=== PATIENT | female | born 1930 | race Caucasian/White ===

== ENCOUNTER 2017-03-09 08:00 | Outpatient (CLI) | payer MEDICARE, OTHER | END 2017-03-09 08:01 | disposition home or self-care (01) | DX: I10 Essential (primary) hypertension (principal); E11.9 Type 2 diabetes mellitus without complications; E78.5 Hyperlipidemia, unspecified; E03.9 Hypothyroidism, unspecified ==

== ENCOUNTER 2017-06-09 08:00 | Outpatient (CLI) | payer MEDICARE, OTHER ==
[2017-06-09 13:46] LABS: BASOPHILS # (AUTO) 0.1 10^3/uL (0.0-0.1); EOSINOPHILS # (AUTO) 0.5 10^3/uL (0.0-0.7); HCT - HEMATOCRIT 34.3 % (37.0-47.0); HGB - HEMOGLOBIN 11.3 g/dL (12.0-16.0); LYMPHOCYTES % (AUTO) 14.3 %; MEAN CORPUSCULAR HEMOGLOBIN 30.3 pg (27.0-31.0); MEAN CORPUSCULAR HGB CONC 32.8 g/dL (32.0-36.0); MEAN CORPUSCULAR VOLUME 92.6 fL (81.0-99.0); MEAN PLATELET VOLUME 8.3 fL (7.9-10.8); MONOCYTES # (AUTO) 0.6 10^3/uL (0.0-1.0); NEUTROPHILS % (AUTO) 69.7 %; NUCLEATED RED BLOOD CELLS AUTO 0.1 /100WBC; RED BLOOD COUNT 3.71 10^6/uL (4.20-5.40); RED CELL DISTRIBUTION WIDTH 13.5 % (12.0-15.0); UNCORRECTED WHITE BLOOD COUNT 7.2 x10^3/uL; WHITE BLOOD COUNT 7.2 x10^3/uL (4.8-10.8)
[2017-06-09 13:50] LABS: CREATININE 1.2 mg/dL (0.4-1.0); POTASSIUM 4.2 mmol/L (3.5-5.0)
== END 2017-06-09 08:01 | disposition home or self-care (01) ==
LOC: LAB.WCP 08:00
PROVIDERS: ATTEND Family Medicine
DX: N18.3 Chronic kidney disease, stage 3 (moderate) (principal)
CPT/HCPCS: 36415; 80048; 85025

== ENCOUNTER 2017-07-12 11:03 | Outpatient (CLI) | payer MEDICARE, OTHER | END 2017-07-12 11:04 | disposition critical access hospital (66) | LOC: EMS 11:03 | PROVIDERS: ATTEND Surgery | DX: R55 Syncope and collapse (principal) | CPT/HCPCS: A0425; A0427 ==

== ENCOUNTER 2017-07-12 11:33 | Emergency (ER) | payer MEDICARE, OTHER ==
--- NOTE | 2017-07-12 12:43 | ED Physician Documentation ---
PD HPI SYNCOPE - Stated complaint Stated Complaint: SYNCOPY - Chief complaint Chief Complaint: Neuro - History obtained from History obtained from: Patient, Family - History of Present Illness Witnessed: Witnessed Timing - onset: Today Duration: Seconds Preceding symptoms: Light headed, Other (headache) Associated symptoms: Headache. No: Seizure, Incontinant of urine, Chest pain, Palpitations, Diaphoresis, Dyspnea Contributing factors: Decreased PO intake, Other (took lasix yesterday) Injury occurred: None Similar symptoms before: Diagnosis (CVA) Recently seen: Not recently seen - Additional information Additional information: 87-year-old female with a history of CVA and congestive heart failure as well as renal insufficiency has had a syncopal episode today while playing cards. She was seated at the time of the event she notes that a friend told her she had a big yawn and following that was syncopal for a brief. She did not injure herself. She does note that yesterday she took some Lasix and that she diuresed " a lot". She has a history of aortic stenosis. Review of Systems Constitutional: denies: Fever Eyes: denies: Decreased vision Ears: denies: Ear pain Nose: denies: Rhinorrhea / runny nose, Congestion Throat: denies: Sore throat Cardiac: denies: Chest pain / pressure, Palpitations Respiratory: reports: Cough. denies: Dyspnea GI: denies: Abdominal Pain, Nausea, Vomiting : denies: Dysuria, Frequency Skin: denies: Rash Musculoskeletal: denies: Neck pain, Back pain Neurologic: reports: Syncope, Headache. 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 : None HEENT: Macular degeneration Psych: Depression, Anxiety Musculoskeletal: None Derm: None - Past Surgical History Past Surgical History: Yes General: Colonoscopy Ortho: Arthroscopic surgery Cardiovascular: CABG HEENT: Cataracts, Tonsil/Adenoidectomy - Present Medications Home Medications: Ambulatory Orders Medication Instructions Recorded Confirmed Alprazolam 0.5 - 1 mg PO DAILY PRN 12/18/14 07/12/17 Atorvastatin Calcium [Lipitor] 40 mg PO DAILY 12/18/14 07/12/17 Sertraline [Zoloft] 50 mg PO DAILY 12/18/14 07/12/17 Furosemide [Lasix] 20 mg PO DAILY 04/30/15 07/12/17 Isosorbide Mononitrate [Isosorbide 30 mg PO DAILY 04/30/15 07/12/17 Mononitrate ER] traMADol [Ultram] 50 mg PO ONCE 04/30/15 07/12/17 Azelastine HCl 137 mcg NS BID 10/07/16 07/12/17 Carvedilol 12.5 mg PO BID 10/07/16 07/12/17 Cetirizine HCl 10 mg PO DAILY 10/07/16 07/12/17 Fluticasone [Flonase] 1 sprays CHNADRA BID 10/07/16 07/12/17 Clopidogrel [Plavix] 75 mg PO DAILY 07/12/17 07/12/17 - Allergies Allergies/Adverse Reactions: Allergies Allergy/AdvReac Type Severity Reaction Status Date / Time hydrocodone Allergy Unknown Verified 10/07/16 02:24 lisinopril Allergy Unknown Verified 10/07/16 02:24 metformin Allergy Unknown Verified 10/07/16 02:24 Penicillins Allergy Itching Verified 10/07/16 02:24 quinidine Allergy Unknown Verified 10/07/16 02:24 codeine AdvReac Itching Verified 10/07/16 02:24 pneumoccal vaccine Allergy Unknown Uncoded 10/07/16 02:24 - Social History Does the pt smoke?: No Smoking Status: Never smoker Does the pt drink ETOH?: No Does the pt have substance abuse?: No - Immunizations Immunizations are current?: Yes - POLST Patient has POLST: No PD ED PE NORMAL - Vitals Vital signs reviewed: Yes (normal ) - General General: No acute distress, Well developed/nourished - HEENT HEENT: Atraumatic, PERRL, Ears normal - Neck Neck: Supple, no meningeal sign, No bony TTP - Cardiac Cardiac: RRR, Other (2 out of 6 holosystolic murmur at the left sternal border radiating into the axilla and up along the sternum.) - Respiratory Respiratory: No respiratory distress, Clear bilaterally - Abdomen Abdomen: Soft, Non tender - Back Back: No CVA TTP, No spinal TTP - Derm Derm: Normal color, No rash - Extremities Extremities: No deformity, No edema - Neuro Neuro: Alert and oriented X 3, No motor deficit, No sensory deficit, Normal speech - Psych Psych: Normal mood, Normal affect Results - Vitals Vitals: Vital Signs - 24 hr 07/12/17 07/12/17 07/12/17 11:39 11:52 13:43 Temperature 36.4 C L Heart Rate 67 72 67 Respiratory 16 18 14 Rate Blood Pressure 127/76 114/76 134/68 H O2 Saturation 96 94 94 07/12/17 07/12/17 15:06 17:03 Temperature Heart Rate 74 83 Respiratory 18 17 Rate Blood Pressure 174/84 H 157/89 H O2 Saturation 96 95 Oxygen O2 Source [] Nasal cannula O2 Source [] Nasal cannula O2 Source Room air - EKG (time done) 1247 Rate: Rate (enter#) (71) Ischemia: Q waves Compare to prior EKG: Changed from prior EKG (SPT 10-07-16 T-wave onversions have developed. ) Computer interpretation: Agree with computer - Labs Labs: Laboratory Tests 07/12/17 07/12/17 07/12/17 12:59 12:59 12:59 WBC 9.1 RBC 3.91 L Hgb 11.7 L Hct 35.6 L MCV 91.3 MCH 29.9 MCHC 32.7 RDW 13.9 Plt Count 235 MPV 8.2 Neut # 7.5 H Lymph # 0.8 L [place] # 0.5 Eos # 0.2 Baso # 0.1 Absolute Nucleated RBC 0.00 Nucleated RBCs 0.0 Sodium 138 Potassium 4.4 Chloride 101 Carbon Dioxide 26 Anion Gap 11.0 BUN 29 H Creatinine 1.3 H Estimated GFR (MDRD) 39 L Glucose 118 H Lactic Acid Calcium 9.4 Total Bilirubin 0.5 AST 20 ALT 22 Alkaline Phosphatase 105 Troponin I < 0.04 Total Protein 6.7 Albumin 4.0 Globulin 2.7 Albumin/Globulin Ratio 1.5 Lipase 29 Urine Color Urine Clarity Urine pH Ur Specific [place] Urine Protein Urine Glucose (UA) Urine Ketones Urine Occult Blood Urine Nitrite Urine Bilirubin Urine Urobilinogen Ur Leukocyte Esterase Ur Microscopic Review Urine Culture Comments 07/12/17 07/12/17 12:59 13:35 WBC RBC Hgb Hct MCV MCH MCHC RDW Plt Count MPV Neut # Lymph # [place] # Eos # Baso # Absolute Nucleated RBC Nucleated RBCs Sodium Potassium Chloride Carbon Dioxide Anion Gap BUN Creatinine Estimated GFR (MDRD) Glucose Lactic Acid 1.6 Calcium Total Bilirubin AST ALT Alkaline Phosphatase Troponin I Total Protein Albumin Globulin Albumin/Globulin Ratio Lipase Urine Color YELLOW Urine Clarity CLEAR Urine pH 5.5 Ur Specific [place] 1.025 Urine Protein NEGATIVE Urine Glucose (UA) NEGATIVE Urine Ketones NEGATIVE Urine Occult Blood NEGATIVE Urine Nitrite NEGATIVE Urine Bilirubin NEGATIVE Urine Urobilinogen 0.2 (NORMAL) Ur Leukocyte Esterase NEGATIVE Ur Microscopic Review NOT INDICATED Urine Culture Comments NOT INDICATED - Rads (name of study) 2 view chest Radiology: Prelim report reviewed (Impression: Chronic findings. No acute disease.), EMP read indepedently, See rad report Procedures - IVC sono (time) 1240 Bedside IVC sono: IVC measures (cm) (0.89), IVC collapsed c insp (cm) (complete) , Dehydration (est 2 liters.) PD MEDICAL DECISION MAKING - ED course Complexity details: reviewed old records, reviewed results, re-evaluated patient , considered differential, d/w patient, d/w family ED course: 87-year-old female with a syncopal episode today while playing cards. She did take a dose of Lasix yesterday and diuresed a lot. She has a history of aortic stenosis and here in the emergency department this morning she is found to be dehydrated. Estimated at 2 L deficit. Here in the emergency department she is administered intravenous saline laboratories are evaluated. Departure - Departure Disposition: 01 Home, Self Care Clinical Impression: Dehydration Syncope Qualifiers: Syncope type: unspecified Qualified Code(s): R55 - Syncope and collapse Condition: Stable Instructions: ED Dehydration Follow-Up: Nayla Schwab DO [Primary Care Provider] - Comments: Today it appears that your syncopal episode was related to dehydration. On my examination today you do appear to have a loud murmur which appears to be aortic stenosis. This particular etiology can be a problem with dehydration. Follow-up with your physicist nuclear by phone tomorrow.
[2017-07-12] MEDS: SODIUM CHLORIDE 0.9% 1,000 ML IV ONE (13:06)
[2017-07-12 13:14] LABS: BASOPHILS # (AUTO) 0.1 10^3/uL (0.0-0.1); BASOPHILS % (AUTO) 0.7 %; EOSINOPHILS # (AUTO) 0.2 10^3/uL (0.0-0.7); EOSINOPHILS % (AUTO) 2.3 %; HCT - HEMATOCRIT 35.6 % (37.0-47.0); HGB - HEMOGLOBIN 11.7 g/dL (12.0-16.0); LYMPHOCYTES # (AUTO) 0.8 10^3/uL (1.5-3.5); LYMPHOCYTES % (AUTO) 9.1 %; MEAN CORPUSCULAR HEMOGLOBIN 29.9 pg (27.0-31.0); MEAN CORPUSCULAR HGB CONC 32.7 g/dL (32.0-36.0); MEAN CORPUSCULAR VOLUME 91.3 fL (81.0-99.0); MEAN PLATELET VOLUME 8.2 fL (7.9-10.8); MONOCYTES # (AUTO) 0.5 10^3/uL (0.0-1.0); MONOCYTES % (AUTO) 5.4 %; NEUTROPHILS # (AUTO) 7.5 10^3/uL (1.5-6.6); NEUTROPHILS % (AUTO) 82.5 %; RED BLOOD COUNT 3.91 10^6/uL (4.20-5.40); RED CELL DISTRIBUTION WIDTH 13.9 % (12.0-15.0); UNCORRECTED WHITE BLOOD COUNT 9.1 x10^3/uL; WHITE BLOOD COUNT 9.1 x10^3/uL (4.8-10.8)
[2017-07-12 13:22] LABS: ALBUMIN/GLOBULIN RATIO 1.5 (1.0-2.2); BILIRUBIN,TOTAL 0.5 mg/dL (0.2-1.0); CALCIUM 9.4 mg/dL (8.5-10.3); CREATININE 1.3 mg/dL (0.4-1.0); POTASSIUM 4.4 mmol/L (3.5-5.0); TOTAL PROTEIN 6.7 g/dL (6.7-8.2)
[2017-07-12 14:15] LABS: BILIRUBIN,URINE NEGATIVE (NEGATIVE); PH,URINE 5.5 PH (5.0-7.5); UA CHARGE (STRIP ONLY) YES; UR CULTURE IF IND NOT INDICATED
--- NOTE | 2017-07-12 16:50 | XRAY Preliminary Report ---
Exam: XR Chest 2 View PA/LAT IMPRESSION: Chronic findings. No acute disease. [facility] SITE ID: [id number]
--- NOTE | 2017-07-12 16:53 | XRAY Report ---
EXAM: CHEST RADIOGRAPHY EXAM DATE: 07/12/2017 04:28 PM. CLINICAL HISTORY: Cough syncope. COMPARISON: 10/07/2016 and 30 April 2015. TECHNIQUE: 2 views. FINDINGS: Lungs/Pleura: Hyperexpanded with flattened diaphragm and coarse lung markings typical of COPD. No def inite localized infiltrate, consolidation, effusion, or pneumothorax. Mediastinum: Mild cardiomegaly, unchanged. Upper lobe vessels not distended. Other: Status post median sternotomy. Scoliosis. Degenerative changes. Old T12 compression. IMPRESSION: Chronic findings. No acute disease. [facility] Referring Provider Line: [phone] SITE ID: [id number]
[2017-07-12 17:55] VITALS: BP 156/85
== END 2017-07-12 18:01 | disposition home or self-care (01) ==
LOC: EDUNIT# → ED 11:33
DX: E86.0 Dehydration (principal); R55 Syncope and collapse; I11.0 Hypertensive heart disease with heart failure; I50.9 Heart failure, unspecified; I25.2 Old myocardial infarction; I25.10 Atherosclerotic heart disease of native coronary artery without angina pectoris; Z95.1 Presence of aortocoronary bypass graft; N28.9 Disorder of kidney and ureter, unspecified; Z86.73 Personal history of transient ischemic attack (TIA), and cerebral infarction without residual deficits
CPT/HCPCS: 36415; 71020; 80053; 81001; 81003; 83605; 83690; 84484; 85025; 87086; 93005; 99284

== ENCOUNTER 2017-09-15 13:15 | Outpatient (CLI) | payer MEDICARE, OTHER ==
[2017-09-15 12:43] LABS: BASOPHILS # (AUTO) 0.1 10^3/uL (0.0-0.1); BASOPHILS % (AUTO) 1.2 %; EOSINOPHILS # (AUTO) 0.2 10^3/uL (0.0-0.7); EOSINOPHILS % (AUTO) 2.9 %; HCT - HEMATOCRIT 34.9 % (37.0-47.0); HGB - HEMOGLOBIN 11.6 g/dL (12.0-16.0); LYMPHOCYTES # (AUTO) 1.2 10^3/uL (1.5-3.5); LYMPHOCYTES % (AUTO) 20.6 %; MEAN CORPUSCULAR HEMOGLOBIN 30.8 pg (27.0-31.0); MEAN CORPUSCULAR HGB CONC 33.3 g/dL (32.0-36.0); MEAN CORPUSCULAR VOLUME 92.4 fL (81.0-99.0); MEAN PLATELET VOLUME 8.5 fL (7.9-10.8); MONOCYTES # (AUTO) 0.4 10^3/uL (0.0-1.0); MONOCYTES % (AUTO) 6.8 %; NEUTROPHILS % (AUTO) 68.5 %; RED BLOOD COUNT 3.77 10^6/uL (4.20-5.40); RED CELL DISTRIBUTION WIDTH 14.8 % (12.0-15.0); UNCORRECTED WHITE BLOOD COUNT 5.8 x10^3/uL; WHITE BLOOD COUNT 5.8 x10^3/uL (4.8-10.8)
[2017-09-15 13:07] LABS: HEMOGLOBIN A1C 0.48 g/dL
[2017-09-15 13:14] LABS: ALBUMIN/GLOBULIN RATIO 1.6 (1.0-2.2); BILIRUBIN,TOTAL 0.5 mg/dL (0.2-1.0); BUN - BLOOD UREA NITROGEN 30 mg/dL (6-20); CALCIUM 9.1 mg/dL (8.5-10.3); CARBON DIOXIDE - CO2 24 mmol/L (21-32); CHLORIDE 105 mmol/L (101-111); CHOL/HDL RATIO 3.9 (<4.4); CHOLESTEROL 179 mg/dL; CREATININE 1.4 mg/dL (0.4-1.0); GFR - MDRD 36 (>89); GLUCOSE 123 mg/dL (70-100); HDL CHOLESTEROL 46 mg/dL; LDL/HDL RATIO 2.1 (<4.4); POTASSIUM 4.9 mmol/L (3.5-5.0); SODIUM 138 mmol/L (135-145); TOTAL PROTEIN 6.7 g/dL (6.7-8.2); TRIGLYCERIDES 189 mg/dL; VLDL CHOLESTEROL 38 mg/dL
== END 2017-09-15 13:16 | disposition home or self-care (01) ==
LOC: LAB.WCP 13:15
PROVIDERS: ATTEND Family Medicine
DX: I63.9 Cerebral infarction, unspecified (principal); E11.9 Type 2 diabetes mellitus without complications
CPT/HCPCS: 36415; 80053; 80061; 83036; 85025

== ENCOUNTER 2017-12-15 08:00 | Outpatient (CLI) | payer MEDICARE, OTHER ==
[2017-12-15 12:57] LABS: BUN - BLOOD UREA NITROGEN 29 mg/dL (6-20); CALCIUM 8.9 mg/dL (8.5-10.3); CARBON DIOXIDE - CO2 24 mmol/L (21-32); CHLORIDE 107 mmol/L (101-111); CHOL/HDL RATIO 3.7 (<4.4); CHOLESTEROL 152 mg/dL; CREATININE 1.3 mg/dL (0.4-1.0); GFR - MDRD 39 (>89); GLUCOSE 113 mg/dL (70-100); HDL CHOLESTEROL 41 mg/dL; LDL CHOLESTEROL,CALCULATED 70 mg/dL; LDL/HDL RATIO 1.7 (<4.4); SODIUM 138 mmol/L (135-145); VLDL CHOLESTEROL 41 mg/dL
[2017-12-15 13:01] LABS: HGB - HEMOGLOBIN 11.3 g/dL (12.0-16.0); MEAN CORPUSCULAR HEMOGLOBIN 31.8 pg (27.0-31.0); MEAN CORPUSCULAR HGB CONC 31.8 g/dL (32.0-36.0); MEAN CORPUSCULAR VOLUME 99.8 fL (81.0-99.0); MEAN PLATELET VOLUME 8.3 fL (7.9-10.8); RED BLOOD COUNT 3.55 10^6/uL (4.20-5.40); RED CELL DISTRIBUTION WIDTH 13.6 % (12.0-15.0); WHITE BLOOD COUNT 6.7 x10^3/uL (4.8-10.8)
[2017-12-15 13:23] LABS: HB2 TOTAL 11.7 g/dL; HEMOGLOBIN A1C 0.43 g/dL; HEMOGLOBIN A1C % 5.5 % (4.6-6.2)
== END 2017-12-15 08:01 ==
LOC: LAB.WCP 08:00
PROVIDERS: ATTEND Family Medicine
DX: I25.10 Atherosclerotic heart disease of native coronary artery without angina pectoris (principal); E11.22 Type 2 diabetes mellitus with diabetic chronic kidney disease; N18.3 Chronic kidney disease, stage 3 (moderate)
CPT/HCPCS: 36415; 80048; 80061; 83036

== ENCOUNTER 2018-04-22 08:00 | Outpatient (CLI) | payer MEDICARE, OTHER ==
[2018-04-22 13:07] LABS: HGB - HEMOGLOBIN 11.8 g/dL (12.0-16.0); MEAN CORPUSCULAR HEMOGLOBIN 32.3 pg (27.0-31.0); MEAN CORPUSCULAR HGB CONC 33.4 g/dL (32.0-36.0); MEAN CORPUSCULAR VOLUME 96.6 fL (81.0-99.0); MEAN PLATELET VOLUME 8.2 fL (7.9-10.8); RED BLOOD COUNT 3.66 10^6/uL (4.20-5.40); RED CELL DISTRIBUTION WIDTH 13.3 % (12.0-15.0); WHITE BLOOD COUNT 5.9 x10^3/uL (4.8-10.8)
[2018-04-22 13:35] LABS: CALCIUM 9.2 mg/dL (8.5-10.3); CREATININE 1.3 mg/dL (0.4-1.0)
== END 2018-04-22 08:01 | disposition home or self-care (01) ==
LOC: LAB.WCP 08:00
PROVIDERS: ATTEND Family Medicine
DX: N18.3 Chronic kidney disease, stage 3 (moderate) (principal)
CPT/HCPCS: 36415; 80048; 85027

== ENCOUNTER 2018-05-28 11:18 | Outpatient (CLI) | payer MEDICARE, OTHER | END 2018-05-28 11:19 | disposition home or self-care (01) | LOC: DI 11:18 | PROVIDERS: ATTEND Family Medicine | DX: I35.0 Nonrheumatic aortic (valve) stenosis (principal); I51.7 Cardiomegaly | CPT/HCPCS: 93306 ==

== ENCOUNTER 2018-11-09 08:00 | Outpatient (CLI) | payer MEDICARE, OTHER ==
[2018-11-09 13:51] LABS: CALCIUM 8.9 mg/dL (8.5-10.3); CREATININE 1.2 mg/dL (0.4-1.0); HGB - HEMOGLOBIN 11.4 g/dL (12.0-16.0); MEAN CORPUSCULAR HEMOGLOBIN 32.2 pg (27.0-31.0); MEAN CORPUSCULAR HGB CONC 33.6 g/dL (32.0-36.0); MEAN CORPUSCULAR VOLUME 95.7 fL (81.0-99.0); MEAN PLATELET VOLUME 8.5 fL (7.9-10.8); RED BLOOD COUNT 3.53 10^6/uL (4.20-5.40); RED CELL DISTRIBUTION WIDTH 14.4 % (12.0-15.0); WHITE BLOOD COUNT 6.5 x10^3/uL (4.8-10.8)
[2018-11-09 14:00] LABS: HEMOGLOBIN A1C 0.47 g/dL; HEMOGLOBIN A1C % 5.7 % (4.6-6.2)
== END 2018-11-09 23:59 | disposition home or self-care (01) ==
LOC: LAB.WCP 08:00
PROVIDERS: ATTEND Family Medicine
DX: I10 Essential (primary) hypertension (principal); E11.9 Type 2 diabetes mellitus without complications
CPT/HCPCS: 36415; 80048; 82043; 83036; 84443; 85027

== ENCOUNTER 2018-12-01 12:19 | Outpatient (CLI) | payer MEDICARE, OTHER ==
--- NOTE | 2018-12-01 17:18 | MRI Report ---
Reason: COLLAPSED VERTEBRA,NOT ELSEWHERE,CLASSIFIED,SITE U Procedure Date: 12/01/2018 Accession Number: [id number] / [id number] Procedure: MRI - Lumbar Spine W/O CPT Code: FULL RESULT: EXAM: MRI LUMBAR SPINE WITHOUT CONTRAST. EXAM DATE: 12/01/2018 01:28 PM. CLINICAL HISTORY: Collapsed vertebra, not elsewhere, classified, site U. COMPARISON: Lumbar spine 2 view 11/10/2018 9:36 AM KUB 12/18/2014 10:41 AM. TECHNIQUE: Multiplanar, multisequence T1-weighted and fluid-sensitive sequences of the lumbar spine from T12 to S1 without contrast. Other: None. FINDINGS: Spinal Canal: The conus terminates at L1. The conus medullaris and cauda equina are unremarkable. Alignment: 22 degrees of levoscoliosis between T9-T10 and L1-L2. 22.3 degrees of levoscoliosis between L1-L2 and L4-L5. No focal listhesis. Bone Marrow: Five [id number] lumbar vertebral bodies are assumed. T12 shows inferior endplate compression injury. This has progressed since the comparison study from 2014. There is 4.6 mm of retropulsion of the inferior posterior margin. No marrow edema however. Disk Levels/Facets: T12-L1: Mild broad-based bulge. Retropulsion. No stenosis. L1-L2: Some disk dehydration. No central or foraminal stenosis. L2-L3: Some disk dehydration, left lateral disk protrusion creating moderate left foraminal stenosis. Mild central stenosis. Right neural foramen is normal. L3-L4: Broad-based disk bulge and prominent facets. No central or foraminal stenosis. L4-L5: Broad-based disk bulge, prominent facets. No central stenosis. Severe left foraminal narrowing. L5-S1: Broad-based disk bulge also noted. Prominent facets. No central stenosis. No foraminal narrowing. Musculature: Moderately severe fatty atrophy of the multifidus muscle is present. Other: The partially visualized retroperitoneum is unremarkable. IMPRESSION: 1. Moderate multi-convex scoliotic curvature. No focal listhesis. 2. T12 shows some progression of the inferior endplate compression injury. This is old. No marrow edema is present. There is about 4.6 mm of retropulsion of the inferior posterior margin. 3. L2-L3 shows left lateral disk protrusion creating a moderate left foraminal stenosis. Mild central stenosis. 4. L3-L4 shows a broad-based disk bulge, no central or foraminal stenosis. 5. L4-L5 shows no central stenosis. Severe left foraminal narrowing however. 6. L5-S1 shows a broad-based disk bulge, prominent facets. No central stenosis. No foraminal narrowing. Comment: The following findings are so common in adults without low back pain that while we report their presence, they must be interpreted with caution and in the context of the clinical situation. (Reference Avnik et al, Spine 2001) Prevalence of findings in patients without low back pain: Disk degeneration (any evidence): 92% Disk desiccation/T2 signal loss: 83% Disk height loss: 56% Disk bulge: 64% Disk protrusion: 32% Annular tear/high intensity zone: 38% [facility]
== END 2018-12-01 12:20 | disposition home or self-care (01) ==
LOC: DI 12:19
PROVIDERS: ATTEND Family Medicine
DX: M51.36 Other intervertebral disc degeneration, lumbar region (principal); M48.061 Spinal stenosis, lumbar region without neurogenic claudication; M51.26 Other intervertebral disc displacement, lumbar region; M41.9 Scoliosis, unspecified; M48.54XS Collapsed vertebra, not elsewhere classified, thoracic region, sequela of fracture
CPT/HCPCS: 72148

== ENCOUNTER 2019-02-26 15:27 | Emergency (ER) | payer MEDICARE, OTHER ==
--- NOTE | 2019-02-26 15:37 | ED Physician Documentation ---
History of Present Illness - Stated complaint Stated Complaint: WEAKNESS/GLF - Chief complaint Chief Complaint: Neuro - History obtained from History obtained from: Patient, Family - Additonal information Additional information: Patient is a an 88-year-old female with history of CVA, TIA, CAD with coronary stents in place, baseline balance issues requiring physical therapyPresenting with feeling generally weak over the past several days with ground-level fall yesterday. Patient reports that she has not attended physical therapy for 3 weeks until 2 days ago and following physical therapy, has felt generally weak without specific sensation, strength, range of motion loss. Patient reports that she felt weak and slid down the wall of the bathroom yesterday and believes she may have struck her head without loss of consciousness, as well as hurt her right wrist which has some swelling and bruising present. Patient otherwise denies headaches, vision changes, nausea, vomiting, difficulty breathing, chest pain, abdominal pain, urinary or stool changes. Patient describes her weakness otherwise as feeling as though her legs generally give out.Patient is to follow- up with her general neurologist later this week. Patient and family do admit to significant social stressors over the last few weeks which has caused some anxiety and stress for patient. Patient otherwise denies any particular worse cinthya or improving factors to her symptoms. 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 HEENT: Macular degeneration Psych: Depression, Anxiety Musculoskeletal: None Derm: None - Past Surgical History Past Surgical History: Yes General: Colonoscopy Ortho: Arthroscopic surgery Cardiovascular: CABG HEENT: Cataracts, Tonsil/Adenoidectomy - Present Medications Home Medications: Ambulatory Orders Medication Instructions Recorded Confirmed ALPRAZolam [Alprazolam] 0.5 - 1 mg PO DAILY PRN 12/18/14 07/12/17 Atorvastatin Calcium [Lipitor] 40 mg PO DAILY 12/18/14 07/12/17 Sertraline [Zoloft] 50 mg PO DAILY 12/18/14 07/12/17 Furosemide [Lasix] 20 mg PO DAILY 04/30/15 07/12/17 Isosorbide Mononitrate [Isosorbide 30 mg PO DAILY 04/30/15 07/12/17 Mononitrate ER] traMADol [Ultram] 50 mg PO ONCE 04/30/15 07/12/17 Azelastine HCl 137 mcg NS BID 10/07/16 07/12/17 Carvedilol 12.5 mg PO BID 10/07/16 07/12/17 Cetirizine HCl 10 mg PO DAILY 10/07/16 07/12/17 Fluticasone [Flonase] 1 sprays CHANDRA BID 10/07/16 07/12/17 Clopidogrel [Plavix] 75 mg PO DAILY 07/12/17 07/12/17 - Allergies Allergies/Adverse Reactions: Allergies Allergy/AdvReac Type Severity Reaction Status Date / Time hydrocodone Allergy Unknown Verified 02/26/19 15:36 lisinopril Allergy Unknown Verified 02/26/19 15:36 metformin Allergy Unknown Verified 02/26/19 15:36 Penicillins Allergy Itching Verified 02/26/19 15:36 quinidine Allergy Unknown Verified 02/26/19 15:36 codeine AdvReac Itching Verified 02/26/19 15:36 pneumoccal vaccine Allergy Unknown Uncoded 02/26/19 15:36 - Social History Does the pt smoke?: No Smoking Status: Never smoker Does the pt drink ETOH?: No Does the pt have substance abuse?: No - Immunizations Immunizations are current?: Yes - POLST Patient has POLST: No PD ED PE NORMAL - General General: Alert and oriented X 3, No acute distress, Well developed/nourished - HEENT HEENT: Atraumatic, PERRL (Gross visual acuity intact without nystagmus.), EOMI, Moist mucous membranes - Cardiac Cardiac: RRR. No: No murmur (Moderately loud holosystolic murmur present (chronic)) - Respiratory Respiratory: No respiratory distress, Clear bilaterally - Abdomen Abdomen: Normal bowel sounds, Soft, Non tender, Non distended - Derm Derm: Normal color, Warm and dry, No rash - Extremities Extremities: No deformity, No tenderness to palpate, No edema - Neuro Neuro: Alert and oriented X 3, No motor deficit, No sensory deficit - Psych Psych: Normal mood, Normal affect Results - Vitals Vitals: Vital Signs - 24 hr 02/26/19 15:30 Temperature 36.3 C L Heart Rate 97 Respiratory 18 Rate Blood Pressure 148/92 H O2 Saturation 98 Oxygen O2 Source [] Nasal cannula O2 Source [] Nasal cannula O2 Source Room air - EKG (time done) 1622 Rate: Rate (enter#) (68) Rhythm: NSR QRS: Low voltage Ischemia: Non specific changes - Labs Labs: Laboratory Tests 02/26/19 02/26/19 02/26/19 16:20 16:35 16:35 WBC 7.1 RBC 3.23 L Hgb 10.6 L Hct 31.5 L MCV 97.6 MCH 32.7 H MCHC 33.5 RDW 13.0 Plt Count 227 MPV 8.2 Neut # (Auto) 5.6 Lymph # (Auto) 1.0 L [place] # (Auto) 0.5 Eos # (Auto) 0.1 Baso # (Auto) 0.1 Absolute Nucleated RBC 0.00 Nucleated RBC % 0.0 Sodium 136 Potassium 4.3 Chloride 105 Carbon Dioxide 22 Anion Gap 9.0 BUN 21 H Creatinine 1.2 H Estimated GFR (MDRD) 42 L Glucose 119 H Calcium 9.3 Total Bilirubin 0.6 AST 13 ALT 10 Alkaline Phosphatase 66 Troponin I Total Protein 6.2 L Albumin 3.6 Globulin 2.6 Albumin/Globulin Ratio 1.4 Lipase 26 Urine Color Urine Clarity Urine pH Ur Specific [place] Urine Protein Urine Glucose (UA) Urine Ketones Urine Occult Blood Urine Nitrite Urine Bilirubin Urine Urobilinogen Ur Leukocyte Esterase Ur Microscopic Review Urine Culture Comments Influenza A (Rapid) Negative Influenza B (Rapid) Negative 02/26/19 02/26/19 16:35 16:51 WBC RBC Hgb Hct MCV MCH MCHC RDW Plt Count MPV Neut # (Auto) Lymph # (Auto) [place] # (Auto) Eos # (Auto) Baso # (Auto) Absolute Nucleated RBC Nucleated RBC % Sodium Potassium Chloride Carbon Dioxide Anion Gap BUN Creatinine Estimated GFR (MDRD) Glucose Calcium Total Bilirubin AST ALT Alkaline Phosphatase Troponin I < 0.04 Total Protein Albumin Globulin Albumin/Globulin Ratio Lipase Urine Color YELLOW Urine Clarity CLEAR Urine pH 5.0 Ur Specific [place] 1.010 Urine Protein NEGATIVE Urine Glucose (UA) NEGATIVE Urine Ketones NEGATIVE Urine Occult Blood NEGATIVE Urine Nitrite NEGATIVE Urine Bilirubin NEGATIVE Urine Urobilinogen 0.2 (NORMAL) Ur Leukocyte Esterase NEGATIVE Ur Microscopic Review NOT INDICATED Urine Culture Comments NOT INDICATED Influenza A (Rapid) Influenza B (Rapid) Procedures - Splint (location) Upper extremity right Splint applied by: Tech Type of splint: Fiberglass, Sugar tong Other: Patient tolerated well, No complications, Neurovascular intact, Sling provided PD MEDICAL DECISION MAKING - ED course Complexity details: reviewed old records, reviewed results, re-evaluated patient, considered differential, d/w patient, d/w family ED course: Feel the patient's generalized weakness is likely due to chronic comorbidities, including chronic balance issues, as well as recent social stressors and restarting physical therapy. Patient does have swelling and bruising to the right wrist and will obtain x-ray to further evaluate for fracture or other injury. However, her lower suspicion for injury to spine/spinal cord, chest, abdomen, or other extremities given report of injury and physical exam findings. We will also obtain CT head to further evaluate for intracranial injury as patient reports she struck her head, as well as potential Stroke, particularly given patient's CVA history, although no specific neurological deficits on exam. Patient denies symptoms that would raise suspicion for ACS, myocardial infarction, unstable angina, pneumonia, other specific infection or disease process, but will obtain EKG, troponin, screening blood work, as well as urinalysis to evaluate for possible UTI. Physical exam is extremely unremarkable and do not find evidence of specific paresthesias or weakness that are concerning. Patient does voice her own concern for possible dehydration and therefore IV fluids provided. No other medications required at this time.Blood work returned relatively unremarkable including no significant leukocytosis, electrolyte disturbance, obvious anemia, or elevation in creatinine. Urinalysis also returned without signs of infection. Influenza testing negative. EKG and troponin also unremarkable for signs of acute ischemia. CT head did not find evidence of new stroke or injury. However, right wrist x-ray did show evidence of fracture. Advised patient and family of results and recommendations. Splint placed in ED without issue. At this time, patient is declining prescription for pain medication as she normally uses Tylenol and tramadol at home and is comfortable using this medication for pain control. Discussed close follow-up both with orthopedic surgery, as well as cardiology, which is scheduled for Wednesday of this week. Also recommended follow-up with her primary care ph ysician in the next several days. Discussed return precautions. Patient and family comfortable with discharge plan.
[2019-02-26] MEDS ORDERED: SODIUM CHLORIDE 0.9% 1,000 ML IV ONE (15:52)
--- NOTE | 2019-02-26 16:16 | CT Report ---
Reason: History of CVA, new dizziness with fall Procedure Date: 02/26/2019 Accession Number: [id number] / [id number] Procedure: CT - HEAD WO CPT Code: FULL RESULT: EXAM: CT HEAD EXAM DATE: 02/26/2019 04:07 PM. CLINICAL HISTORY: Dizziness and giddiness. COMPARISON: HEAD W/O STROKE PROTOCOL 10/07/2016 2:27 AM. TECHNIQUE: Multiaxial CT images were obtained from the foramen magnum to the vertex. Reformats: Sagittal and coronal. IV contrast: None. In accordance with CT protocol optimization, one or more of the following dose reduction techniques were utilized for this exam: automated exposure control, adjustment of mA and/or KV based on patient size, or use of iterative reconstructive technique. FINDINGS: Parenchyma: No intraparenchymal hemorrhage. No evidence of mass, midline shift, or CT findings of acute infarction. Serna-white differentiation is notable for small areas of encephalomalacia in the left frontoparietal lobe suggesting old infarct, otherwise, intact. Diffuse chronic microangiopathic white matter changes are evident. Extraaxial Spaces: Normal for age. No subdural or epidural collections identified. Ventricles: The ventricles and cortical sulci are enlarged, consistent with age-related tissue loss. Sinuses and orbits: Imaged paranasal sinuses, orbits, and mastoids show no significant abnormality. Bones: No evidence of fracture or calvarial defect. Other: None. IMPRESSION: 1. Generalized age-related cortical atrophic changes without evidence of acute intracranial abnormality. 2. Tiny old infarcts in the left frontoparietal lobe. [facility]
--- NOTE | 2019-02-26 16:24 | XRAY Report ---
Reason: fall with bruising and swelling Procedure Date: 02/26/2019 Accession Number: [id number] / [id number] Procedure: XR - Wrist 4 View RT CPT Code: FULL RESULT: EXAM: RIGHT WRIST RADIOGRAPHY EXAM DATE: 02/26/2019 04:17 PM. CLINICAL HISTORY: Right wrist pain. COMPARISON: WRIST 3 VIEW LT 12/02/2017 11:00 AM. TECHNIQUE: 3 views. FINDINGS: Bones: Nondisplaced comminuted metaphyseal fracture extending through the distal radius is seen. Intra-articular extension is suggested. The remainder osseous structures appear intact. Generalized osteopenia is present. Joints: Mild to moderate degenerative changes are seen primarily in the first carpometacarpal joint. Normal alignment. Soft Tissues: Normal. No soft tissue swelling. IMPRESSION: Nondisplaced comminuted intra-articular fracture of the distal radial metaphysis. [facility]
[2019-02-26 16:43] LABS: BASOPHILS # (AUTO) 0.1 10^3/uL (0.0-0.1); EOSINOPHILS # (AUTO) 0.1 10^3/uL (0.0-0.7); EOSINOPHILS % (AUTO) 1.1 %; HGB - HEMOGLOBIN 10.6 g/dL (12.0-16.0); LYMPHOCYTES % (AUTO) 13.5 %; MEAN CORPUSCULAR HEMOGLOBIN 32.7 pg (27.0-31.0); MEAN CORPUSCULAR HGB CONC 33.5 g/dL (32.0-36.0); MEAN CORPUSCULAR VOLUME 97.6 fL (81.0-99.0); MEAN PLATELET VOLUME 8.2 fL (7.9-10.8); MONOCYTES # (AUTO) 0.5 10^3/uL (0.0-1.0); MONOCYTES % (AUTO) 6.6 %; NEUTROPHILS # (AUTO) 5.6 10^3/uL (1.5-6.6); NEUTROPHILS % (AUTO) 77.8 %; PLT - PLATELET COUNT 227 10^3/uL (130-450); RED BLOOD COUNT 3.23 10^6/uL (4.20-5.40); WHITE BLOOD COUNT 7.1 x10^3/uL (4.8-10.8)
[2019-02-26 16:52] LABS: ALBUMIN 3.6 g/dL (3.2-5.5); ALBUMIN/GLOBULIN RATIO 1.4 (1.0-2.2); BILIRUBIN,TOTAL 0.6 mg/dL (0.2-1.0); CALCIUM 9.3 mg/dL (8.5-10.3); CREATININE 1.2 mg/dL (0.4-1.0); TOTAL PROTEIN 6.2 g/dL (6.7-8.2)
[2019-02-26 17:00] LABS: BILIRUBIN,URINE NEGATIVE (NEGATIVE); GLUCOSE, URINE (UA) NEGATIVE (NEGATIVE); KETONES,URINE (UA) NEGATIVE (NEGATIVE); LEUKOCYTE ESTERASE, URINE NEGATIVE (NEGATIVE); NITRITE,URINE NEGATIVE (NEGATIVE); OCCULT BLOOD,URINE NEGATIVE (NEGATIVE); PROTEIN,URINE NEGATIVE (NEGATIVE); UROBILINOGEN,URINE 0.2 (NORMAL) E.U./dL (NORMAL)
[2019-02-26 17:08] LABS: CLARITY,URINE CLEAR (CLEAR)
[2019-02-26 18:07] VITALS: BP 169/80
== END 2019-02-26 18:07 | disposition home or self-care (01) ==
LOC: ED 15:27
DX: S52.571A Other intraarticular fracture of lower end of right radius, initial encounter for closed fracture (principal); W18.30XA Fall on same level, unspecified, initial encounter; Y92.009 Unspecified place in unspecified non-institutional (private) residence as the place of occurrence of the external cause; M85.831 Other specified disorders of bone density and structure, right forearm; I10 Essential (primary) hypertension; I25.10 Atherosclerotic heart disease of native coronary artery without angina pectoris; I25.2 Old myocardial infarction; Z95.1 Presence of aortocoronary bypass graft; R01.1 Cardiac murmur, unspecified; Z86.73 Personal history of transient ischemic attack (TIA), and cerebral infarction without residual deficits; Z79.02 Long term (current) use of antithrombotics/antiplatelets
CPT/HCPCS: 29125; 36415; 70450; 80053; 81001; 81003; 83690; 84484; 85025; 87086; 87275; 87276; 93005; 96360; 96361; 99283

== ENCOUNTER 2019-04-12 12:13 | Outpatient (CLI) | payer MEDICARE, OTHER ==
--- NOTE | 2019-04-13 06:26 | MRI Report ---
Reason: ENCOUNTER FOR SCREENING MAMMOGRAM FOR MALIGNANT NE Procedure Date: 04/12/2019 Accession Number: [id number] / [id number] Procedure: MRI - Lumbar Spine W/O CPT Code: FULL RESULT: EXAM: MRI LUMBAR SPINE WITHOUT CONTRAST EXAM DATE: 04/12/2019 12:58 PM. CLINICAL HISTORY: 89-year-old female, low back pain and incontinence. COMPARISON: MR lumbar spine 12/01/2018 TECHNIQUE: Multiplanar, multisequence T1-weighted and fluid-sensitive sequences of the lumbar spine from T12 to S1 without contrast. Other: None. FINDINGS: Spinal Canal: The conus terminates at L1-L2. The conus medullaris and cauda equina are unremarkable. Alignment: Stable alignment. Redemonstration shaped scoliosis with thoracolumbar levoscoliosis and lower lumbar dextroscoliosis. The Fournier angle for the upper curve measures 22 degrees and for the lower curve also 22 degrees. Bone Marrow: Five sap-vpb-atctwer lumbar vertebral bodies are assumed. No acute fracture. Stable chronic compression fracture deformity of the T12 vertebral body with 4 mm retropulsion into the central canal. Modic type II degenerative endplate changes at T12 L1-L5 S1 levels. No bone marrow edema. Disk Levels/Facets: T12-L1: Mild diffuse disk bulge and retropulsion of the fractured T12 vertebral body, similar to prior study. Mild central canal narrowing. Moderate right foraminal narrowing. No left foraminal narrowing. No interval progression. L1-L2: Moderate disk height loss and desiccation. Mild diffuse disk bulge with superimposed bilateral far lateral disk protrusions. Mild anterior dural compression. No significant central canal narrowing. Mild right foraminal narrowing. No left foraminal narrowing. No interval progression. L2-L3: Moderate to severe disk height loss and desiccation. Moderate diffuse disk bulge with superimposed bilateral far lateral disk protrusions. Mild to moderate bilateral facet arthropathy. Mild central canal narrowing. Mild to moderate right and moderate left foraminal narrowing. Moderate left lateral recess narrowing with mass-effect on traversing left L3 nerve. No interval progression. L3-L4: Moderate disk height loss and desiccation. Mild diffuse disk bulge. Moderate to severe left and moderate right facet arthropathy. Mild anterior dural compression. No significant central canal narrowing. Mild to moderate left foraminal narrowing. No right foraminal narrowing. No interval progression. L4-L5: Moderate disk height loss and desiccation. Moderate diffuse disk bulge with superimposed bilateral far lateral disk protrusions. Moderate to severe bilateral facet arthropathy and ligamentum flavum hypertrophy. Mild to moderate central canal narrowing. Moderate left foraminal narrowing. Mild right foraminal narrowing. Mild to moderate bilateral lateral recess narrowing with mass-effect on traversing L5 nerves bilaterally. No evidence of interval progression. L5-S1: Mild disk height loss and desiccation. Mild to moderate diffuse disk bulge. Moderate to severe bilateral facet arthropathy. Mild central canal narrowing. Moderate right foraminal narrowing. Mild left foraminal narrowing. Moderate right lateral recess narrowing with mass-effect on traversing right S1 nerve. No interval progression. Musculature: Moderate fatty atrophy of the paraspinal musculature. Other: Marked atrophy of the left kidney. The partially visualized abdomen, pelvis, and retroperitoneum are otherwise unremarkable. IMPRESSION: 1. Moderate to severe multilevel degenerative spondylosis, as detailed above and summarized below. No evidence of acute fracture or malalignment. No bone marrow edema. No cord signal abnormality. No significant interval progression in central canal/foraminal narrowing when compared to the prior study from 12/01/2018. 2. Stable alignment. Redemonstration shaped scoliosis with thoracolumbar levoscoliosis and lower lumbar dextroscoliosis. The Fournier angle for the upper curve measures 22 degrees and for the lower curve also 22 degrees. 3. Stable chronic compression fracture deformity of the T12 vertebral body with 4 mm retropulsion into the central canal. 4. T12-L1: Mild central canal narrowing. Moderate right foraminal narrowing. No left foraminal narrowing. No interval progression. Recommend correlation for right T12 radicular symptoms. 5. L1-L2: No significant central canal narrowing. Mild right foraminal narrowing. No left foraminal narrowing. No interval progression. 6. L2-L3: Mild central canal narrowing. Mild to moderate right and moderate left foraminal narrowing. Moderate left lateral recess narrowing with mass-effect on traversing left L3 nerve. No interval progression. Recommend correlation for left L2 and left L3 radicular symptoms. 7. L3-L4: No significant central canal narrowing. Mild to moderate left foraminal narrowing. No right foraminal narrowing. No interval progression. 8. L4-L5: Mild to moderate central canal narrowing. Moderate left foraminal narrowing. Mild right foraminal narrowing. Mild to moderate bilateral lateral recess narrowing with mass-effect on traversing L5 nerves bilaterally. No evidence of interval progression. Recommend correlation for left L4 and bilateral L5 radicular symptoms. 9. L5-S1: Mild central canal narrowing. Moderate right foraminal narrowing. Mild left foraminal narrowing. Moderate right lateral recess narrowing with mass-effect on traversing right S1 nerve. No interval progression. Recommend correlation for right L5 and right S1 radicular symptoms. Comment: The following findings are so common in adults without low back pain that while we report their presence, they must be interpreted with caution and in the context of the clinical situation. (Reference Gurjitvik et al, Spine 2001) Prevalence of findings in patients without low back pain: Disk degeneration (any evidence): 92% Disk desiccation/T2 signal loss: 83% Disk height loss: 56% Disk bulge: 64% Disk protrusion: 32% Annular tear/high intensity zone: 38% RADIA
== END 2019-04-12 12:14 | disposition home or self-care (01) ==
LOC: DI 12:13
PROVIDERS: ATTEND Family Medicine
DX: M51.36 Other intervertebral disc degeneration, lumbar region (principal); M47.9 Spondylosis, unspecified; M51.26 Other intervertebral disc displacement, lumbar region; M51.37 Other intervertebral disc degeneration, lumbosacral region; M41.85 Other forms of scoliosis, thoracolumbar region; M41.86 Other forms of scoliosis, lumbar region
CPT/HCPCS: 72148

== ENCOUNTER 2019-05-08 08:00 | Outpatient (CLI) | payer MEDICARE, OTHER ==
[2019-05-08 18:46] LABS: BASOPHILS # (AUTO) 0.1 10^3/uL (0.0-0.1); BASOPHILS % (AUTO) 1.3 %; EOSINOPHILS # (AUTO) 0.2 10^3/uL (0.0-0.7); EOSINOPHILS % (AUTO) 3.2 %; HGB - HEMOGLOBIN 11.5 g/dL (12.0-16.0); LYMPHOCYTES # (AUTO) 0.9 10^3/uL (1.5-3.5); LYMPHOCYTES % (AUTO) 14.3 %; MEAN CORPUSCULAR HGB CONC 32.2 g/dL (32.0-36.0); MEAN CORPUSCULAR VOLUME 99.2 fL (81.0-99.0); MEAN PLATELET VOLUME 8.2 fL (7.9-10.8); MONOCYTES # (AUTO) 0.4 10^3/uL (0.0-1.0); MONOCYTES % (AUTO) 6.4 %; NEUTROPHILS # (AUTO) 4.8 10^3/uL (1.5-6.6); NEUTROPHILS % (AUTO) 74.8 %; PLT - PLATELET COUNT 249 10^3/uL (130-450); RED BLOOD COUNT 3.61 10^6/uL (4.20-5.40); RED CELL DISTRIBUTION WIDTH 13.4 % (12.0-15.0); WHITE BLOOD COUNT 6.4 x10^3/uL (4.8-10.8)
[2019-05-08 19:13] LABS: ALBUMIN 3.6 g/dL (3.2-5.5); ALBUMIN/GLOBULIN RATIO 1.4 (1.0-2.2); ALKALINE PHOSPHATASE 72 IU/L (42-121); ALT ALANINE AMINOTRANSFERASE 11 IU/L (10-60); AST ASPARTATE AMINOTRANSFERASE 16 IU/L (10-42); BILIRUBIN,TOTAL 0.5 mg/dL (0.2-1.0); BUN - BLOOD UREA NITROGEN 22 mg/dL (6-20); CALCIUM 9.4 mg/dL (8.5-10.3); CARBON DIOXIDE - CO2 23 mmol/L (21-32); CHLORIDE 108 mmol/L (101-111); CHOL/HDL RATIO 4.3 (<4.4); CHOLESTEROL 180 mg/dL; CREATININE 1.3 mg/dL (0.4-1.0); GFR - MDRD 39 (>89); GLUCOSE 124 mg/dL (70-100); HDL CHOLESTEROL 42 mg/dL; LDL CHOLESTEROL,CALCULATED 97 mg/dL; LDL/HDL RATIO 2.3 (<4.4); SODIUM 141 mmol/L (135-145); TOTAL PROTEIN 6.1 g/dL (6.7-8.2); VLDL CHOLESTEROL 41 mg/dL
== END 2019-05-08 08:01 | disposition home or self-care (01) ==
LOC: LAB.WCP 08:00
PROVIDERS: ATTEND Family Medicine
DX: I10 Essential (primary) hypertension (principal); E78.1 Pure hyperglyceridemia; E03.9 Hypothyroidism, unspecified
CPT/HCPCS: 36415; 80053; 80061; 83721; 84443; 85025

== ENCOUNTER 2019-12-07 07:00 | Outpatient (CLI) | payer MEDICARE, OTHER ==
[2019-12-07 12:46] LABS: HB2 TOTAL 11.1 g/dL; HEMOGLOBIN A1C 0.55 g/dL; HEMOGLOBIN A1C % 6.7 % (4.6-6.2)
[2019-12-07 12:50] LABS: CALCIUM 9.3 mg/dL (8.5-10.3); CREATININE 1.3 mg/dL (0.4-1.0)
== END 2019-12-07 23:59 | disposition home or self-care (01) ==
LOC: LAB.WCP 07:00
PROVIDERS: ATTEND Family Medicine
DX: E11.9 Type 2 diabetes mellitus without complications (principal)
CPT/HCPCS: 36415; 80048; 83036

== ENCOUNTER 2020-06-04 15:09 | Outpatient (CLI) | payer MEDICARE, OTHER | END 2020-06-04 23:59 | disposition critical access hospital (66) | LOC: EMS 15:09 | PROVIDERS: ATTEND Surgery | DX: M25.551 Pain in right hip (principal); W18.39XA Other fall on same level, initial encounter; Y92.009 Unspecified place in unspecified non-institutional (private) residence as the place of occurrence of the external cause | CPT/HCPCS: A0425; A0429 ==

== ENCOUNTER 2020-06-04 15:30 | Emergency (ER) | payer MEDICARE, OTHER ==
[2020-06-04 15:45] LABS: BASOPHILS # (AUTO) 0.1 10^3/uL (0.0-0.1); BASOPHILS % (AUTO) 0.7 %; EOSINOPHILS # (AUTO) 0.2 10^3/uL (0.0-0.7); EOSINOPHILS % (AUTO) 2.7 %; LYMPHOCYTES # (AUTO) 1.3 10^3/uL (1.5-3.5); LYMPHOCYTES % (AUTO) 18.5 %; MEAN CORPUSCULAR HEMOGLOBIN 32.5 pg (27.0-31.0); MEAN CORPUSCULAR HGB CONC 32.1 g/dL (32.0-36.0); MEAN CORPUSCULAR VOLUME 101.5 fL (81.0-99.0); MONOCYTES # (AUTO) 0.5 10^3/uL (0.0-1.0); MONOCYTES % (AUTO) 6.9 %; NEUTROPHILS % (AUTO) 70.6 %; PLT - PLATELET COUNT 231 10^3/uL (130-450); RED BLOOD COUNT 3.38 10^6/uL (4.20-5.40); RED CELL DISTRIBUTION WIDTH 12.7 % (12.0-15.0); WHITE BLOOD COUNT 7.1 x10^3/uL (4.8-10.8)
--- NOTE | 2020-06-04 15:50 | ED Physician Documentation ---
History of Present Illness - Stated complaint Stated Complaint: FALL - Chief complaint Chief Complaint: Trauma Ext - History obtained from History obtained from: Patient, EMS - History of Present Illness Timing: Today Pain level max: 8 Pain level now: 4 - Additonal information Additional information: 89-year-old female presents to the emergency department after a ground-level fall today. She landed on the right buttock and right hip. No complaint of pain to the right leg. She also struck her head and hurt her neck when she fell backwards. Patient takes Plavix. She lost her balance and fell backwards today. No numbness or tingling. No vision changes. No focal neurological deficits. 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 : None HEENT: Macular degeneration Psych: Depression, Anxiety Musculoskeletal: None Derm: None - Past Surgical History Past Surgical History: Yes General: Colonoscopy Ortho: Arthroscopic surgery Cardiovascular: CABG HEENT: Cataracts, Tonsil/Adenoidectomy - Present Medications Home Medications: Ambulatory Orders Medication Instructions Recorded Confirmed ALPRAZolam [Alprazolam] 0.5 - 1 mg PO DAILY PRN 12/18/14 07/12/17 Atorvastatin Calcium [Lipitor] 40 mg PO DAILY 12/18/14 07/12/17 Sertraline [Zoloft] 50 mg PO DAILY 12/18/14 07/12/17 Furosemide [Lasix] 20 mg PO DAILY 04/30/15 07/12/17 Isosorbide Mononitrate [Isosorbide 30 mg PO DAILY 04/30/15 07/12/17 Mononitrate ER] traMADol [Ultram] 50 mg PO ONCE 04/30/15 07/12/17 Azelastine HCl 137 mcg NS BID 10/07/16 07/12/17 Carvedilol 12.5 mg PO BID 10/07/16 07/12/17 Cetirizine HCl 10 mg PO DAILY 10/07/16 07/12/17 Fluticasone [Flonase] 1 sprays CHANDRA BID 10/07/16 07/12/17 Clopidogrel [Plavix] 75 mg PO DAILY 07/12/17 07/12/17 - Allergies Allergies/Adverse Reactions: Allergies Allergy/AdvReac Type Severity Reaction Status Date / Time hydrocodone Allergy Unknown Verified 06/04/20 15:53 lisinopril Allergy Unknown Verified 06/04/20 15:53 metformin Allergy Unknown Verified 06/04/20 15:53 Penicillins Allergy Itching Verified 06/04/20 15:53 quinidine Allergy Unknown Verified 06/04/20 15:53 codeine AdvReac Itching Verified 06/04/20 15:53 pneumoccal vaccine Allergy Unknown Uncoded 06/04/20 15:53 - Social History Does the pt smoke?: No Smoking Status: Never smoker Does the pt drink ETOH?: No Does the pt have substance abuse?: No - Immunizations Immunizations are current?: Yes - POLST Patient has POLST: No PD ED PE NORMAL - Vitals Vital signs reviewed: Yes - General General: Alert and oriented X 3, No acute distress - HEENT HEENT: Atraumatic, PERRL, Moist mucous membranes - Neck Neck: Supple, no meningeal sign, Other (Mild tenderness palpation mid cervical spine. No step-off or deformity) - Cardiac Cardiac: RRR, Strong equal pulses, Other (harsh murmur.) - Respiratory Respiratory: No respiratory distress, Clear bilaterally - Abdomen Abdomen: Soft, Non tender, Non distended - Back Back: No spinal TTP - Derm Derm: Warm and dry - Extremities Extremities: Other (Tender to palpation over the right greater trochanter. Limited range of motion of the right hip secondary to pain. Neurovascularly intact. Leg is slightly shortened.) - Neuro Neuro: Alert and oriented X 3 - Psych Psych: Normal mood, Normal affect Results - Vitals Vitals: Vital Signs - 24 hr 06/04/20 06/04/20 06/04/20 15:41 16:00 17:00 Temperature 36.7 C 36.9 C Heart Rate 80 75 80 Respiratory 18 16 20 Rate Blood Pressure 194/104 H 187/87 H 189/102 H O2 Saturation 95 93 95 06/04/20 06/04/20 17:30 18:00 Temperature Heart Rate 80 78 Respiratory 16 18 Rate Blood Pressure 179/94 H 161/93 H O2 Saturation 93 92 Oxygen O2 Source [] Nasal cannula O2 Source [] Nasal cannula O2 Source Room air - EKG (time done) 1601 Rate: Rate (enter#) (75) Rhythm: NSR [place]: Normal Intervals: Normal [place] QRS: Normal Ischemia: Q waves (II, III, aVF) - Labs Labs: Laboratory Tests 06/04/20 06/04/20 06/04/20 15:37 15:37 15:37 WBC 7.1 RBC 3.38 L Hgb 11.0 L Hct 34.3 L MCV 101.5 H MCH 32.5 H MCHC 32.1 RDW 12.7 Plt Count 231 MPV 10.0 Neut # (Auto) 5.0 Lymph # (Auto) 1.3 L [place] # (Auto) 0.5 Eos # (Auto) 0.2 Baso # (Auto) 0.1 Absolute Nucleated RBC 0.00 Nucleated RBC % 0.0 Sodium 140 Potassium 4.1 Chloride 106 Carbon Dioxide 26 Anion Gap 8.0 BUN 29 H Creatinine 1.1 H Estimated GFR (MDRD) 47 L Glucose 104 H Calcium 9.1 Total Bilirubin 0.4 AST 15 ALT 17 Alkaline Phosphatase 68 Total Protein 6.3 L Albumin 3.6 Globulin 2.7 Albumin/Globulin Ratio 1.3 Lipase 31 Blood Type Blood Type Recheck A POSITIVE Antibody Screen 06/04/20 16:16 WBC RBC Hgb Hct MCV MCH MCHC RDW Plt Count MPV Neut # (Auto) Lymph # (Auto) [place] # (Auto) Eos # (Auto) Baso # (Auto) Absolute Nucleated RBC Nucleated RBC % Sodium Potassium Chloride Carbon Dioxide Anion Gap BUN Creatinine Estimated GFR (MDRD) Glucose Calcium Total Bilirubin AST ALT Alkaline Phosphatase Total Protein Albumin Globulin Albumin/Globulin Ratio Lipase Blood Type A POSITIVE Blood Type Recheck Antibody Screen NEGATIVE - Rads (name of study) Right hip x-ray Radiology: Prelim report reviewed, EMP read contemporaneously, See rad report (Impacted femoral neck fracture) Head CT Radiology: Prelim report reviewed, EMP read contemporaneously, See rad report ( No intracranial hemorrhage is seen. Unremarkable intracranial study for age, with brain parenchymal volume loss and chronic small vessel ischemic change. Stable right lateral calvarial osteoma incidentally noted. This is stable compared to prior examinations dating back to 2014 and regarded to be b) Cervical spine CT Radiology: Prelim report reviewed, EMP read contemporaneously, See rad report (No acute fractures can be seen. Cervical spine degenerative changes are seen, which are most prominent inferiorly. Osteopenia. ) cxr Radiology: Prelim report reviewed, EMP read contemporaneously, See rad report (1. Redemonstration of findings compatible with chronic obstructive pulmonary physiology. 2. No focal airspace disease. 3. Stable postsurgical changes from prior median sternotomy and revascularization procedure. 4. Borderline cardiomegaly. ) PD MEDICAL DECISION MAKING - ED course Complexity details: reviewed results, re-evaluated patient, considered differential, d/w patient, d/w information services consultant ED course: 89-year-old female with a right femoral neck fracture. A fascia iliac block was performed with 0.5% ropivacaine. Tolerated well. Good pain control. No other acute injuries. Discussed with Dr. Trejo, orthopedics, who recommends consulting medicine for admission. D/w Dr. Hastings. He spoke with UNDERWRITING INTERN Anesthesia who states that the patient is to high risk to have surgery here with her history of severe aortic stenosis. And recommends transfer to a larger facility. The patient's utilization review nurse, Dr. Mccord is at [facility] Patient would like to be transferred there. Call placed to [facility] at approximately 1800. Patient will be transferred for further care. Patient signed out to the [facility] emergency department physician awaiting transfer. This document was made in part using voice recognition software. While efforts are made to proofread this document, sound alike and grammatical errors may occur. Departure - Departure Disposition: 02 Transfer Acute Care Hosp Clinical Impression: Hip fracture Qualifiers: Encounter type: initial encounter Fracture type: closed Laterality: right Qu alified Code(s): S72.001A - Fracture of unspecified part of neck of right femur, initial encounter for closed fracture Aortic stenosis Qualifiers: Cardiac valve disease etiology: etiology unspecified Qualified Code(s): I35.0 - Nonrheumatic aortic (valve) stenosis Condition: Stable
[2020-06-04 15:58] LABS: ALBUMIN 3.6 g/dL (3.2-5.5); ALBUMIN/GLOBULIN RATIO 1.3 (1.0-2.2); BILIRUBIN,TOTAL 0.4 mg/dL (0.2-1.0); CALCIUM 9.1 mg/dL (8.5-10.3); CREATININE 1.1 mg/dL (0.4-1.0); TOTAL PROTEIN 6.3 g/dL (6.7-8.2)
[2020-06-04] MEDS ORDERED: MORPHINE 2 MG/ML CARPUJECT IVP STA ×4 (16:07→22:06)
[2020-06-04] MEDS ORDERED: ROPIVACAINE 0.5% PF 20 ML AMPULE SUBQ STA (16:08)
--- NOTE | 2020-06-04 16:14 | XRAY Report ---
PROCEDURE: Hip w/Pelvis 2-3V RT INDICATIONS: fall, R hip pain TECHNIQUE: AP pelvis with lateral view(s) of the bilateral hip(s). COMPARISON: None. FINDINGS: Bones: Subcapital right femoral neck fracture. Soft tissues: The visualized bowel gas pattern is normal. No suspicious soft tissue calcifications. IMPRESSION: Right femoral neck fracture. Reviewed by: Johnna Jones MD, PhD on 06/04/2020 4:13 PM PDT Approved by: Johnna Jones MD, PhD on 06/04/2020 4:13 PM PDT Station ID: [id number]
--- NOTE | 2020-06-04 16:47 | CT Report ---
PROCEDURE: HEAD WO INDICATIONS: fall, head injury, pt on plavix TECHNIQUE: Noncontrast 4.5 mm thick angled axial sections acquired from the foramen magnum to the vertex. For r adiation dose reduction, the following was used: automated exposure control, adjustment of mA and/or kV according to patient size. COMPARISON: 02/26/2019, 10/07/2016, 09/28/2016, 11/20/2014. Correlation is also made with the [facility] cervical spine CT 06/04/2020. FINDINGS: Image quality: Excellent. CSF spaces: Basal cisterns are patent. No extra-axial fluid collections. Ventricles are normal in size and shape. Brain: No midline shift. No intracranial masses or hemorrhage. Serna-white matter interface is norm al. Skull and face: Calvarium and visualized facial bones are intact, without suspicious lesions. There is a stable osteoma seen on the right involving the outer table of the calvarium, as on series 3 sweta ge 18. This is stable compared to the prior examinations dating back to 2013. Sinuses: Visualized sinuses and mastoids are clear. IMPRESSION: No intracranial hemorrhage is seen. Unremarkable intracranial study for age, with brain parenchymal volume loss and chronic small vessel ischemic change. Stable right lateral calvarial osteoma incidentally noted. This is stable compared to prior examinati ons dating back to 2013 and regarded to be benign. Reviewed by: Lukas Manzano MD on 06/04/2020 3:46 PM ZARA Approved by: Lukas Manzano MD on 06/04/2020 3:46 PM AKBOBBY Station ID: [id number]
--- NOTE | 2020-06-04 16:49 | CT Report ---
PROCEDURE: CERVICAL SPINE WO INDICATIONS: fall, neck pain TECHNIQUE: Noncontrast 3 mm thick sections acquired from the skull base to the T4 level. Sagittal and coronal r eformats were then constructed. For radiation dose reduction, the following was used: automated exp osure control, adjustment of mA and/or kV according to patient size. COMPARISON: Correlation is made with the accompanying head CT 06/04/2020. Correlation is made with p rior cervical spine plain films 07/17/2016. FINDINGS: Image quality: Excellent. Bones: No fractures or dislocations. Visualized superior ribs are intact. Degenerative changes are seen, with moderate disc space narrowing at C5-C6 and C6-C7. Focal degenerat tex change is also seen involving the C1-C2 interface anteriorly. Milder degenerative changes are see n elsewhere. The bones are osteopenic. Soft tissues: Prevertebral soft tissues are normal in thickness. No paravertebral hematomas. No ap ical pneumothoraces. IMPRESSION: No acute fractures can be seen. Cervical spine degenerative changes are seen, which are most prominent inferiorly. Osteopenia. Reviewed by: Lukas Manzano MD on 06/04/2020 3:47 PM ZARA Approved by: Lukas Manzano MD on 06/04/2020 3:47 PM AKDT Station ID: [id number]
--- NOTE | 2020-06-04 16:59 | XRAY Report ---
PROCEDURE: Chest 1 View X-Ray INDICATIONS: pre-op TECHNIQUE: One view of the chest was acquired. COMPARISON: 07/12/2017 FINDINGS: Surgical changes and devices: Median sternotomy wires are present. Surgical clips in the mediastinum are again noted. Lungs and pleura: Diffuse interstitial prominence. Minimal hyperaeration similar to prior study. No focal consolidation. No pneumothorax. No pleural effusion. Mediastinum: Cardiomediastinal contours remain stable with borderline enlargement the cardiac silhoue tte. Bones and chest wall: No suspicious bony lesions. Overlying soft tissues appear unremarkable. IMPRESSION: 1. Redemonstration of findings compatible with chronic obstructive pulmonary physiology. 2. No focal airspace disease. 3. Stable postsurgical changes from prior median sternotomy and revascularization procedure. 4. Borderline cardiomegaly. Reviewed by: Ankit López MD on 06/04/2020 4:58 PM PDT Approved by: Ankit López MD on 06/04/2020 4:58 PM PDT Station ID: [id number]
[2020-06-04 22:06] VITALS: BP 180/99
== END 2020-06-04 22:44 | disposition short-term general hospital (02) ==
LOC: EDUNIT# → ED 15:30
DX: S72.001A Fracture of unspecified part of neck of right femur, initial encounter for closed fracture (principal); W18.39XA Other fall on same level, initial encounter; Y93.89 Activity, other specified; Y92.009 Unspecified place in unspecified non-institutional (private) residence as the place of occurrence of the external cause; Z79.02 Long term (current) use of antithrombotics/antiplatelets; I35.0 Nonrheumatic aortic (valve) stenosis; I49.3 Ventricular premature depolarization; I10 Essential (primary) hypertension; M50.322 Other cervical disc degeneration at C5-C6 level; M85.80 Other specified disorders of bone density and structure, unspecified site; J44.9 Chronic obstructive pulmonary disease, unspecified; I25.2 Old myocardial infarction; Z95.1 Presence of aortocoronary bypass graft
CPT/HCPCS: 20612; 64447; 70450; 71045; 72125; 80053; 83690; 85025; 86850; 86900; 86901; 93005; 96374; 96376; 99284; 99285

== ENCOUNTER 2020-06-04 22:43 | Outpatient (CLI) | payer MEDICARE, OTHER | END 2020-06-04 23:59 | disposition short-term general hospital (02) | LOC: EMS 22:43 | PROVIDERS: ATTEND Surgery | DX: S72.001A Fracture of unspecified part of neck of right femur, initial encounter for closed fracture (principal); I35.0 Nonrheumatic aortic (valve) stenosis; W10.9XXA Fall (on) (from) unspecified stairs and steps, initial encounter | CPT/HCPCS: A0425; A0428 ==

== ENCOUNTER 2020-11-04 11:29 | Outpatient (CLI) | payer MEDICARE, OTHER ==
[2020-11-04 18:40] LABS: BASOPHILS # (AUTO) 0.1 10^3/uL (0.0-0.1); EOSINOPHILS # (AUTO) 0.2 10^3/uL (0.0-0.7); EOSINOPHILS % (AUTO) 3.1 %; HGB - HEMOGLOBIN 10.7 g/dL (12.0-16.0); LYMPHOCYTES # (AUTO) 1.2 10^3/uL (1.5-3.5); LYMPHOCYTES % (AUTO) 18.5 %; MEAN CORPUSCULAR HEMOGLOBIN 32.1 pg (27.0-31.0); MEAN CORPUSCULAR HGB CONC 31.4 g/dL (32.0-36.0); MEAN CORPUSCULAR VOLUME 102.4 fL (81.0-99.0); MEAN PLATELET VOLUME 10.2 fL (7.9-10.8); MONOCYTES # (AUTO) 0.4 10^3/uL (0.0-1.0); MONOCYTES % (AUTO) 6.5 %; NEUTROPHILS # (AUTO) 4.4 10^3/uL (1.5-6.6); NEUTROPHILS % (AUTO) 70.7 %; PLT - PLATELET COUNT 222 10^3/uL (130-450); RED BLOOD COUNT 3.33 10^6/uL (4.20-5.40); RED CELL DISTRIBUTION WIDTH 13.1 % (12.0-15.0); WHITE BLOOD COUNT 6.2 x10^3/uL (4.8-10.8)
[2020-11-04 19:05] LABS: ALBUMIN 3.9 g/dL (3.2-5.5); ALBUMIN/GLOBULIN RATIO 1.6 (1.0-2.2); ALKALINE PHOSPHATASE 52 IU/L (42-121); ALT ALANINE AMINOTRANSFERASE 19 IU/L (10-60); AST ASPARTATE AMINOTRANSFERASE 15 IU/L (10-42); BILIRUBIN,TOTAL 0.5 mg/dL (0.2-1.0); BUN - BLOOD UREA NITROGEN 29 mg/dL (6-20); CALCIUM 9.3 mg/dL (8.5-10.3); CARBON DIOXIDE - CO2 23 mmol/L (21-32); CHLORIDE 107 mmol/L (101-111); CHOL/HDL RATIO 3.1 (<4.4); CHOLESTEROL 174 mg/dL; CREATININE 1.3 mg/dL (0.4-1.0); GLUCOSE 104 mg/dL (70-100); HDL CHOLESTEROL 56 mg/dL; LDL CHOLESTEROL,CALCULATED 96 mg/dL; LDL/HDL RATIO 1.7 (<4.4); SODIUM 139 mmol/L (135-145); TOTAL PROTEIN 6.4 g/dL (6.7-8.2); VLDL CHOLESTEROL 22 mg/dL
[2020-11-04 20:55] LABS: HEMOGLOBIN A1c% 6.2 % (4.27-6.07)
== END 2020-11-04 11:30 | disposition home or self-care (01) ==
LOC: LAB.N 11:29
PROVIDERS: ATTEND Family Medicine
DX: E11.9 Type 2 diabetes mellitus without complications (principal)
CPT/HCPCS: 36415; 80053; 80061; 82043; 83036; 83721; 84443; 85025

== ENCOUNTER 2020-11-05 08:00 | Outpatient (CLI) | payer MEDICARE, OTHER | END 2020-11-05 23:59 | disposition home or self-care (01) | LOC: LAB 08:00 | PROVIDERS: ATTEND Family Medicine | DX: Z53.9 Procedure and treatment not carried out, unspecified reason (principal) ==